=== PATIENT | male | born 2000 | race Caucasian/White ===

== ENCOUNTER 2022-07-31 19:10 | Emergency (ER) | payer BC ==
[2022-07-31 19:23] VITALS: BP 111/66; PULSE 93; RESP 18; TEMP 98.9; BMI 27.2
== END 2022-07-31 20:00 | disposition home or self-care (01) ==
LOC: FER 19:10
PROC: 0HQ1XZZ Repair Face Skin, External Approach (ICD-10-PCS; principal; 2022-07-31)
DX: S01.81XA Laceration without foreign body of other part of head, initial encounter (principal); X58.XXXA Exposure to other specified factors, initial encounter; Y93.64 Activity, baseball
CPT/HCPCS: 99282-25